=== PATIENT | female | born 1980 ===

== ENCOUNTER 2018-10-27 19:36 | Emergency (ER) | payer MEDICARE ==
[2018-10-27 20:11] LABS: Basophils # (Auto) 0.1 K/mm3 (0.0-0.1); Basophils % (Auto) 1.6 % (0.0-1.8); Eosinophils # (Auto) 0.2 K/mm3 (0.0-0.4); Hematocrit 38.6 % (30.3-42.9); Lymphocytes # (Auto) 2.5 K/mm3 (1.2-5.4); Lymphocytes % (Auto) 32.4 % (13.4-35.0); Mean Corpuscular HGB Conc 34 % (30-34); Mean Corpuscular Volume 95 fl (79-97); Monocytes # (Auto) 0.6 K/mm3 (0.0-0.8); Monocytes % (Auto) 7.9 % (0.0-7.3); Platelet Count 237 K/mm3 (140-440); Red Blood Count 4.05 M/mm3 (3.65-5.03); Red Cell Distribution Width 14.1 % (13.2-15.2)
[2018-10-27 20:46] LABS: BUN/Creatinine Ratio 13; Blood Urea Nitrogen 8 mg/dL (7-17); Calcium 9.3 mg/dL (8.4-10.2); Hemolysis Index 12
--- NOTE | 2018-10-27 20:50 | Emergency Department Report ---
HPI - General Chief Complaint: Psych Time Seen by Provider: 10/27/18 20:36 - HPI HPI: Room 7 The patient is 37-year-old female presenting with a chief complaint of headache and suicidal ideation. The patient states for approximately 1 week she suffered from insomnia, social anxiety a left temporal headache that has been intermittent, feeling jittery and unbalanced on her feet. Patient currently gives her headache a score of 7/10. Patient states she has not used methamphetamines, crack or alcohol since 09/23/2018 Location: Head, mental state Duration: [See above] Quality: [See above] Severity: [See above] Modifying factors: [see above] Context: [see above] Mode of transportation: [not driving] ED Past Medical Hx - Past Medical History Hx GERD: Yes Hx Psychiatric Treatment: Yes (PTSD, Anxiety) Additional medical history: Hep C. Neuropathy - Surgical History Additional Surgical History: Breast reduction - Family History Family history: no significant - Social History Smoking Status: Current Every Day Smoker (1 pack per day) Substance Use Type: Alcohol, Cocaine, Marijuana, Methamphetamines, Other - Medications Home Medications: Home Medications Medication Instructions Recorded Confirmed Last Taken Type Cyclobenzaprine [Flexeril] 10 mg PO QHS PRN #10 tablet 02/14/18 Unknown Rx Ibuprofen [Motrin] 600 mg PO Q8H PRN #20 tablet 02/14/18 Unknown Rx ED Review of Systems ROS: Stated complaint: PHYSIC EVAL Other details as noted in HPI Constitutional: no symptoms reported Eyes: denies: eye pain ENT: denies: throat pain Respiratory: no symptoms reported Cardiovascular: denies: chest pain Endocrine: no symptoms reported Gastrointestinal: denies: abdominal pain Genitourinary: denies: dysuria Musculoskeletal: denies: back pain Neurological: headache Physical Exam - Physical Exam Vital Signs: Vital Signs 10/27/18 10/27/18 19:43 19:46 Temperature 98.5 F 98.5 F Pulse Rate 104 H 110 H Respiratory 18 Rate Blood Pressure 186/107 186/107 O2 Sat by Pulse 18 L 98 Oximetry Vital Signs 10/27/18 10/27/18 10/27/18 19:43 19:46 21:10 Temperature 98.5 F 98.5 F 97.9 F Pulse Rate 104 H 110 H 95 H Respiratory 18 20 Rate Blood Pressure 186/107 186/107 Blood Pressure 165/91 [Left] O2 Sat by Pulse 18 L 98 98 Oximetry 10/27/18 10/27/18 10/27/18 21:14 21:23 21:49 Temperature Pulse Rate 95 H 89 Respiratory 20 20 Rate Blood Pressure 165/91 Blood Pressure 149/81 [Left] O2 Sat by Pulse 98 98 Oximetry Physical Exam: GENERAL: The patient is well-developed well-nourished female lying on stretcher not appearing to be in acute distress. [] HEENT: Normocephalic. Atraumatic. Extraocular motions are intact. Patient has moist mucous membranes. NECK: Supple. Trachea midline CHEST/LUNGS: Clear to auscultation. There is no respiratory distress noted. HEART/CARDIOVASCULAR: Regular. There is no tachycardia. There is no gallop rub or murmur. ABDOMEN: Abdomen is soft, nontender. Patient has normal bowel sounds. There is no abdominal distention. SKIN: There is no rash. There is no edema. There is no diaphoresis. NEURO: The patient is awake, alert, and oriented. The patient is cooperative. The patient has no focal neurologic deficits. The patient has normal speech. C ranial nerves II through XII grossly intact, no drift. No dysmetria noted with [id number] bilaterally MUSCULOSKELETAL: There is no evidence of acute injury. ED Course Vital Signs 10/27/18 10/27/18 19:43 19:46 Temperature 98.5 F 98.5 F Pulse Rate 104 H 110 H Respiratory 18 Rate Blood Pressure 186/107 186/107 O2 Sat by Pulse 18 L 98 Oximetry ED Medical Decision Making - Lab Data Result diagrams: 10/27/18 19:51 10/27/18 19:51 Laboratory Tests 10/27/18 10/27/18 10/27/18 19:51 19:51 19:51 WBC RBC Hgb Hct MCV MCH MCHC RDW Plt Count Lymph % (Auto) Boy[place] % (Auto) Eos % (Auto) Baso % (Auto) Lymph # Boy[place] # Eos # Baso # Seg Neutrophils % Seg Neutrophils # Sodium 140 Potassium 3.8 Chloride 103.3 Carbon Dioxide 23 Anion Gap 18 BUN 8 Creatinine 0.6 L Estimated GFR > 60 BUN/Creatinine Ratio 13 Glucose 114 H Calcium 9.3 Urine Color Urine Turbidity Urine pH Ur Specific [place] Urine Protein Urine Glucose (UA) Urine Ketones Urine Blood Urine Nitrite Ur Reducing Substances Urine Bilirubin Urine Ictotest Urine Urobilinogen Ur Leukocyte Esterase Urine WBC (Auto) Urine RBC (Auto) U Epithel Cells (Auto) Urine Mucus Urine HCG, Qual Salicylates < 0.3 L Urine Opiates Screen Urine Methadone Screen Acetaminophen < 5.0 L Ur Barbiturates Screen Ur Phencyclidine Scrn Ur Amphetamines Screen U Benzodiazepines Scrn Urine Cocaine Screen U Marijuana (THC) Screen Drugs of Abuse Note Plasma/Serum Alcohol 10/27/18 10/27/18 10/27/18 19:51 19:51 21:13 WBC 7.7 RBC 4.05 Hgb 13.0 Hct 38.6 MCV 95 MCH 32 MCHC 34 RDW 14.1 Plt Count 237 Lymph % (Auto) 32.4 Boyle % (Auto) 7.9 H Eos % (Auto) 2.0 Baso % (Auto) 1.6 Lymph # 2.5 Boyle # 0.6 Eos # 0.2 Baso # 0.1 Seg Neutrophils % 56.1 Seg Neutrophils # 4.3 Sodium Potassium Chloride Carbon Dioxide Anion Gap BUN Creatinine Estimated GFR BUN/Creatinine Ratio Glucose Calcium Urine Color Yellow Urine Turbidity Clear Urine pH 5.0 Ur Specific [place] 1.020 Urine Protein 30 mg/dl Urine Glucose (UA) Neg Urine Ketones Neg Urine Blood Sm Urine Nitrite Neg Ur Reducing Substances Not Reportable Urine Bilirubin Neg Urine Ictotest Not Reportable Urine Urobilinogen < 2.0 Ur Leukocyte Esterase Neg Urine WBC (Auto) 1.0 Urine RBC (Auto) 29.0 U Epithel Cells (Auto) 1.0 Urine Mucus Few Urine HCG, Qual Negative Salicylates Urine Opiates Screen Urine Methadone Screen Acetaminophen Ur Barbiturates Screen Ur Phencyclidine Scrn Ur Amphetamines Screen U Benzodiazepines Scrn Urine Cocaine Screen U Marijuana (THC) Screen Drugs of Abuse Note Plasma/Serum Alcohol < 0.01 10/27/18 21:13 WBC RBC Hgb Hct MCV MCH MCHC RDW Plt Count Lymph % (Auto) Boy[place] % (Auto) Eos % (Auto) Baso % (Auto) Lymph # [place] # Eos # Baso # Seg Neutrophils % Seg Neutrophils # Sodium Potassium Chloride Carbon Dioxide Anion Gap BUN Creatinine Estimated GFR BUN/Creatinine Ratio Glucose Calcium Urine Color Urine Turbidity Urine pH Ur Specific [place] Urine Protein Urine Glucose (UA) Urine Ketones Urine Blood Urine Nitrite Ur Reducing Substances Urine Bilirubin Urine Ictotest Urine Urobilinogen Ur Leukocyte Esterase Urine WBC (Auto) Urine RBC (Auto) U Epithel Cells (Auto) Urine Mucus Urine HCG, Qual Salicylates Urine Opiates Screen Presumptive negative Urine Methadone Screen Presumptive negative Acetaminophen Ur Barbiturates Screen Presumptive negative Ur Phencyclidine Scrn Presumptive negative Ur Amphetamines Screen Presumptive negative U Benzodiazepines Scrn Presumptive negative Urine Cocaine Screen Presumptive negative U Marijuana (THC) Screen Presumptive negative Drugs of Abuse Note Disclamer Plasma/Serum Alcohol - Radiology Data Radiology results: report reviewed (CT head), image reviewed (CT head) [facility] [address] [place] [address] Cat Scan Report Signed Patient: YUE RODRIGUEZ MR#: [id number] : 1980 Acct:[id number] Age/Sex: 37 / F ADM Date: 10/27/18 Loc: ED Attending Dr: Ordering Physician: BARRINGTON SIMMS MD Date of Service: 10/27/18 Procedure(s): CT head/brain wo con Accession Number(s): [id number] cc: BARRINGTON SIMMS MD CT head/brain wo con INDICATION / CLINICAL INFORMATION: hypertension, left- sided headache, dizziness. TECHNIQUE: All CT scans at this location are performed using CT dose reduction for ALARA by means of automated exposure control. COMPARISON: None available. FINDINGS: No intracranial hemorrhage or abnormal extra-axial fluid collection. The ventricular system and basilar cisterns are normal. No evidence of mass effect. The visualized paranasal sinuses and mastoid air cells are normal No skeletal abnormality. IMPRESSION: 1. Negative nonenhanced head CT. Signer Name: Catalino Hopkins MD Signed: 10/27/2018 11:40 PM Workstation Name: [id number] Transcribed By: KAYDEN Dictated By: Catalino Hopkins MD Electronically Authenticated By: Catalino Hopkins MD Signed Date/Time: 10/27/18 2340 DD/ 259 TD/TT: - Differential Diagnosis suicidal ideation, hypertensive urgency, intracranial mass, Critical care attestation.: If time is entered above; I have spent that time in minutes in the direct care of this critically ill patient, excluding procedure time. ED Disposition Clinical Impression: Hypertensive urgency, Suicidal ideation Disposition: [id number]/TX-[id number] PSY HOSP/PSY UNIT Is pt being admited?: No Does the pt Need Aspirin: No Condition: Serious Time of Disposition: 00:57 (awaiting acceptance)
[2018-10-27] MEDS ORDERED: CATAPRES PO ONE (21:03)
[2018-10-27 22:07] LABS: HCG Qualitative,Urine Negative (Negative)
[2018-10-27 22:09] LABS: Bilirubin,Urine NEG (Negative); Blood,Urine SM (Negative); Color,Urine Yellow (Yellow); Mucus,Urine FEW /HPF; Urobilinogen,Urine < 2.0 mg/dL (<2.0)
[2018-10-27 22:23] LABS: Amphetamine Screen,Urine PRESUMPTIVE NEGATIVE; Benzodiazepines Screen,Urine PRESUMPTIVE NEGATIVE; Cannabinoid Screen,Urine PRESUMPTIVE NEGATIVE; Cocaine Screen,Urine PRESUMPTIVE NEGATIVE; Methadone Screen,Urine PRESUMPTIVE NEGATIVE; Opiate Screen,Urine PRESUMPTIVE NEGATIVE
[2018-10-27] MEDS ORDERED: HALDOL IM PRN (22:58)
[2018-10-27] MEDS ORDERED: BENADRYL IM PRN (22:58)
[2018-10-27] MEDS ORDERED: ATIVAN IM PRN (22:58)
--- NOTE | 2018-10-27 23:45 | Cat Scan Report ---
CT head/brain wo con INDICATION / CLINICAL INFORMATION: hypertension, left-sided headache, dizziness. TECHNIQUE: All CT scans at this location are performed using CT dose reduction for ALARA by means of automated e xposure control. COMPARISON: None available. FINDINGS: No intracranial hemorrhage or abnormal extra-axial fluid collection. The ventricular system and basilar cisterns are normal. No evidence of mass effect. The visualized paranasal sinuses and mastoid air cells are normal No skeletal abnormality. IMPRESSION: 1. Negative nonenhanced head CT. Signer Name: Catalino Hopkins MD Signed: 10/27/2018 11:40 PM Workstation Name: [id number]
[2018-10-28 03:27] VITALS: BP 103/62
== END 2018-10-28 07:11 ==
LOC: ED 19:36
DX: I16.0 Hypertensive urgency (principal); R45.851 Suicidal ideations; F17.200 Nicotine dependence, unspecified, uncomplicated; F12.10 Cannabis abuse, uncomplicated; F14.10 Cocaine abuse, uncomplicated; F19.10 Other psychoactive substance abuse, uncomplicated; K21.9 Gastro-esophageal reflux disease without esophagitis; F43.10 Post-traumatic stress disorder, unspecified; F41.9 Anxiety disorder, unspecified; G47.00 Insomnia, unspecified; Z86.19 Personal history of other infectious and parasitic diseases; Z88.8 Allergy status to other drugs, medicaments and biological substances; Z79.1 Long term (current) use of non-steroidal anti-inflammatories (NSAID); Z79.899 Other long term (current) drug therapy
CPT/HCPCS: 36415; 70450; 80048; 80307; 81001; 81025; 85025; 99285; G0480; 80320

== ENCOUNTER 2018-11-08 11:25 | Emergency (ER) | payer MEDICARE | END 2018-11-08 11:28 | disposition left against medical advice (07) | LOC: ED 11:25 | DX: Z01.30 Encounter for examination of blood pressure without abnormal findings (principal); Z53.21 Procedure and treatment not carried out due to patient leaving prior to being seen by health care provider ==